=== PATIENT | male | born 1950 | race Caucasian/White ===

== ENCOUNTER 2022-11-20 13:29 | Inpatient (IN) ==
--- NOTE | 2022-11-20 14:07 | Electrocardiogram Report ---
Test Reason : Blood Pressure : / mmHG Vent. Rate : 109 BPM Atrial Rate : 109 BPM P-R Int : 172 ms QRS Dur : 074 ms QT Int : 306 ms P-R-T Axes : 082 052 085 degrees QTc Int : 412 ms Sinus tachycardia Possible Old Septal infarct Abnormal ECG No previous ECGs available Confirmed by Salvatore Theodore ([id number]) on 11/20/2022 2:07:25 PM Referred By: Confirmed By:Salvatore Theodore
--- NOTE | 2022-11-20 14:46 | XRay Report ---
XR chest 1V not portable CLINICAL HISTORY: Shortness of breath. COMPARISON STUDY: No previous studies for comparison. FINDINGS: Left subclavian Oewfib-s-Enti is in place. There is no pneumothorax. There is a moderate to large left pleural effusion. A small right pleural effusion is present. Note is made of a 5.2 cm mas slike opacity lateral to the right hilum. Cardiomegaly is noted. There is pulmonary vascular congesti on without overt pulmonary edema. IMPRESSION: 1. Moderate to large left pleural effusion. Small right pleural effusion. 2. 5.2 cm masslike opacity lateral to the right hilum. This is suspicious for a neoplastic process. C orrelation with prior imaging studies, if available, is recommended. In absence of prior studies, a c hest CT is suggested. ACT 112: Positive. There are findings on this exam that require communication between the performing entity and the patient following Patient Test Result Information Act ([place] Act 112) guidelines. Electronically signed by: Alexei Jaimes M.D. 11/20/2022 2:44 PM
[2022-11-20 14:47] LABS: Hematocrit (blood only) 33.3 % (42.0-52.0); Mean Corpuscular Hemoglobin 36.5 pg (25.0-34.0); Mean Corpuscular Volume 110.6 fL (80.0-100.0); Mean Platelet Volume 10.4 fL (9.4-12.4); Platelet Count 316 K/uL (130-400); RDW Coefficient of Variation 15.4 % (11.5-14.5); RDW Standard Deviation 62.3 fL (36.4-46.3); Red Blood Count 3.01 M/uL (4.70-6.10); White Blood Count 18.53 K/ul (4.8-10.8)
[2022-11-20 14:54] LABS: Alanine Aminotransferase 21 U/L (7-52); Albumin Globulin Ratio 1.3 (0.9-2); Alkaline Phosphatase 135 U/L (34-104); Anion Gap 8 (3-11); Aspartate Aminotransferase 22 U/L (13-39); BUN Creatinine Ratio 27.5 (10-20); Bilirubin,Total 0.5 mg/dl (0.2-1.0); Blood Urea Nitrogen 58 mg/dl (6-23); Calcium 9.7 mg/dl (8.6-10.3); Carbon Dioxide 31 mmol/L (21-32); Chloride 102 mmol/L (98-107); Est GFR (African American) 35.2 ml/min; Est GFR (Non-African American) 30.4 ml/min; Glucose 114 mg/dl (70-99(Fasting)); Potassium 4.7 mmol/L (3.5-5.1); Sodium 141 mmol/L (136-145)
[2022-11-20 15:55] LABS: Basophils # (auto) 0.02 K/uL (0-0.2); Basophils % (auto) 0.1 %; Immature Granulocytes # (auto) 0.14 K/uL (0.01-0.20); Immature Granulocytes % (auto) 0.8 %; Lymphocytes # (auto) 0.28 K/uL (1.2-3.4); Lymphocytes % (auto) 1.5 %; Macrocytosis Present; Monocytes # (auto) 0.32 K/uL (0.11-0.59); Monocytes % (auto) 1.7 %; Neutrophils # (auto) 17.77 K/uL (1.40-6.50); Neutrophils % (auto) 95.9 %
--- NOTE | 2022-11-20 17:26 | Emergency Department Note ---
Impression & Plan Pleural effusion, left, Metastatic non-small cell lung cancer, Infiltrate of lower lobe of left lung present on imaging study ED Provider Note CHIEF COMPLAINT: Shortness of breath, weakness HISTORY OF PRESENT ILLNESS: This 72-year-old male patient with past medical history of metastatic lung cancer, COPD, hypertension and chronic kidney disease presents to the emergency department with complaints of shortness of breath and weakness. Patient states he wears home oxygen but over the last several weeks has been lost approximately 10 pounds. Yesterday he was not able to get out of the chair and walk into the house. His daughter states he sat in the sun, not drinking any fluids for several hours. He denies any substernal chest pressure but does complain of "rib pain." He states he had a small bowel study and needed to drink contrast which he believes has not yet passed. He was told this could be causing his rib pain. He was sent in by his oncologist today, according to his daughter, to make sure his disease has not progressed. Patient states he has not been eating much recently but has not had any vomiting. He thinks he is dehydrated. REVIEW OF SYSTEMS: A review of systems was performed with positives and pertinent negatives listed in the history of present illness. 10 systems were reviewed and are otherwise negative. ALLERGIES: see below MEDICATIONS: see below PMH: see below SOCIAL HISTORY: see below DDx: Pleural effusion, pneumonia, pneumothorax, progressive lung cancer with lung collapse, PE, COPD exacerbation, ACS among others PHYSICAL EXAM: Vital signs reviewed. General: Chronically ill, thin and frail, 72-year-old male, wearing oxy mask. HEENT: No scleral icterus, PERRLA, neck supple. Dry mucous membranes. Cardiovascular: Regular rate and rhythm, slightly tachycardic, no extra sounds. Pulmonary: Diminished lung sounds on the left, mild wheezing on the right. Abdomen: Soft, nontender, nondistended, positive bowel sounds. Musculoskeletal: Atraumatic, no peripheral edema. Neurologic: Patient awake alert and oriented x 3, speech is clear Skin: Warm, dry, no rash EMERGENCY DEPARTMENT COURSE/MDM: This patient was evaluated and appeared to be in no significant distress. Patient was resting comfortably on oxy mask. External medical records were reviewed including [employer] oncology records. Patient was hydrated with normal saline solution. Chest x-ray was performed and reveals a large left pleural effusion which appears to be new when compared to previous imaging reads. Patient has a known mass in the right lower lung. CT imaging of the chest was performed and confirms the right lower lobe cavitary mass, inflammatory process in the right middle lobe and large left pleural effusion. There is also evidence of aspiration in the left main bronchus. Laboratory work reveals a leukocytosis of 18,000 with chronic renal failure, creatinine of 2.11. Blood cultures were sent and the patient was medicated with IV Zosyn. Patient's case was discussed with the hospitalist service who will evaluate the patient for admission and further management. MONITORING: An order for cardiac monitoring was placed and the patient is noted to be in a regular rate and rhythm at 93 beats per minute. RADIOLOGY: Chest x-ray to my interpretation reveals a large left pleural effusion, consolidation in the right perihilar appreciated. Otherwise defer to radiology CT scan of the chest: IMPRESSION: 1. Advanced emphysema. 2. There is a large left pleural effusion with atelectasis/consolidation of the left lower lung. Correlate clinically for evidence of pneumonia. 3. Pleural thickening is seen at the left lung base. A malignant effusion is not excluded. 4. There is a 4.6 cm cavitary mass lesion in the right lower lobe, likely corresponding to the reported history of a lung cancer. Correlate with the oncological history and any prior outside imaging studies. 5. There is an additional 1.5 cm nodule in the right lower lobe. This could be inflammatory or neoplastic. 6. There is a necrotic-appearing right axillary lymphadenopathy. Neoplasm is the diagnosis of exclusion. 7. Nodular consolidative change is seen in the right middle lobe. This is likely infectious/inflammatory. Correlate clinically. Attention at follow-up is recommended. 8. Secretions/debris fill the left mainstem bronchus in the lower lobe airways. Correlate clinically for evidence of aspiration. 9. Left-sided nephrolithiasis. 10. Additional findings as above. ACT 112: Negative or not required by law. Electronically signed by: Rasheed Santos M.D. 11/20/2022 7:04 PM EKG: To my interpretation reveals a sinus tachycardia at 109 bpm. Poor quality baseline for interpretation, QTc is 412. No PVC, no PAC. No previous EKGs available DISPOSITION: Admission Past Med/Surg History Medical History COPD (chronic obstructive pulmonary disease) HTN (hypertension) Hypertensive kidney disease with stage 3b chronic kidney disease Metastatic non-small cell lung cancer On home oxygen therapy Psoriasis Tobacco use disorder Surgical History History of dental surgery History of insertion of tunneled central venous catheter (CVC) with port S/P skin biopsy Family History Father Stroke Hypertension Social History Smoking Status: Current every day smoker Tobacco Type: Cigarettes packs per day: 0.75; Cigarettes Per Day: 4; Hx Alcohol Use: No Hx Substance Use: No Preferred Language: Hebrew Communication Ability: Effective Aging Box Hand Required: No Beliefs That Will Affect Care: None Current Living Situation: Family Current Living Situation Comment: lives w/ his mother Feels Safe at Home: Yes Assistive Devices: Oxygen - Continuous Allergies Allergies Allergy/AdvReac Type Severity Reaction Status Date / Time No Known Allergies Allergy Unverified 11/20/22 19:17 Home Meds Home Medications Medication Instructions Recorded Confirmed albuterol sulfate 90 mcg/actuation 2 puff inhalation QID PRN SOB 11/20/22 11/20/22 aerosol inhaler amlodipine 5 mg tablet 5 mg PO DAILY 11/20/22 11/20/22 dexamethasone 4 mg tablet 4 mg PO BID 11/20/22 11/20/22 folic acid 1 mg tablet 1 mg PO DAILY 11/20/22 11/20/22 tiotropium bromide 18 mcg capsule 18 mcg inhalation DAILY 11/20/22 11/20/22 with inhalation device (Spiriva with HandiHaler) Previous Rx's Medication Instructions Recorded amoxicillin 500 mg-potassium 1 tab PO BID 13 days #26 tabs 11/21/22 clavulanate 125 mg tablet (Augmentin) lactobacillus combination no.4 3 3,000 mmu cells PO DAILY 2 weeks 11/21/22 billion cell capsule (Probiotic) #14 caps mirtazapine 15 mg tablet 7.5 mg PO HS #20 tabs 11/21/22 Results & Data (ED) Vital Signs Vital Signs - 24 hr 11/20/22 13:32 11/20/22 16:30 11/20/22 16:45 Temperature 36.1 C L Temperature Source Temporal Artery Scan Pulse Rate 104 H Pulse Rate [Right Finger] 100 H Pulse Rate from SpO2 Sensor Pulse Rhythm [Right Finger] Regular Pulse Strength [Right Finger] Normal Respiratory Rate 20 18 Respiratory Effort / Characteristics Non-Labored Spontaneous Non-Labored Respiratory Depth Normal Normal Respiratory Pattern Regular Blood Pressure 103/67 Blood Pressure [Right Arm] 143/89 H Blood Pressure Mean 79 Blood Pressure Mean [Right Arm] 107 Blood Pressure Position [Right Arm] Lying Pulse Oximetry 94 93 84 L Oxygen Delivery Method Room Air Oxymask Oxymask Oxygen Flow Rate 5 0 Sepsis Recent Fever Within 48 Hours No Sepsis New/Unexplained Change in Mental Status N/A Sepsis Action Taken by Nursing No Action Required Oxygen Flow Rate - Titration 5 Pulse Oximetry Post Tiitration 100 11/20/22 16:51 11/20/22 17:00 11/20/22 17:00 Temperature Temperature Source Pulse Rate 98 H 95 H Pulse Rate [Right Finger] Pulse Rate from SpO2 Sensor 95 H Pulse Rhythm [Right Finger] Pulse Strength [Right Finger] Respiratory Rate 20 28 H Respiratory Effort / Characteristics Respiratory Depth Respiratory Pattern Blood Pressure 127/90 Blood Pressure [Right Arm] Blood Pressure Mean 105 Blood Pressure Mean [Right Arm] Blood Pressure Position [Right Arm] Pulse Oximetry 100 Oxygen Delivery Method Oxymask Oxymask Oxygen Flow Rate 5 5 Sepsis Recent Fever Within 48 Hours Sepsis New/Unexplained Change in Mental Status Sepsis Action Taken by Nursing Oxygen Flow Rate - Titration Pulse Oximetry Post Tiitration 11/20/22 17:30 11/20/22 16:51 Temperature Temperature Source Pulse Rate 93 H 98 H Pulse Rate [Right Finger] Pulse Rate from SpO2 Sensor 92 H Pulse Rhythm [Right Finger] Pulse Strength [Right Finger] Respiratory Rate 20 Respiratory Effort / Characteristics Respiratory Depth Respiratory Pattern Blood Pressure Blood Pressure [Right Arm] Blood Pressure Mean Blood Pressure Mean [Right Arm] Blood Pressure Position [Right Arm] Pulse Oximetry 100 Oxygen Delivery Method Oxymask Oxygen Flow Rate 5 Sepsis Recent Fever Within 48 Hours Sepsis New/Unexplained Change in Mental Status Sepsis Action Taken by Nursing Oxygen Flow Rate - Titration Pulse Oximetry Post Tiitration Home Medications Current Medication List: was personally reviewed by me Laboratory Data Attestation: I reviewed the patient's lab results. 11/20/22 13:48 11/20/22 13:48 Lab Results 11/20/22 11/20/2211/20/23 Range/Units 13:48 13:48 18:37 WBC 18.53 H (4.8-10.8) K/ul RBC 3.01 L (4.70-6.10) M/uL Hgb 11.0 L (14.0-18.0) g/dl Hct 33.3 L (42.0-52.0) % MCV 110.6 H (80.0-100.0) fL MCH 36.5 H (25.0-34.0) pg MCHC 33.0 (32.0-36.0) g/dL RDW Std Deviation 62.3 H (36.4-46.3) fL RDW Coeff of Subha 15.4 H (11.5-14.5) % Plt Count 316 (130-400) K/uL MPV 10.4 (9.4-12.4) fL Immature Gran % (Auto) 0.8 % Neut % (Auto) 95.9 % Lymph % (Auto) 1.5 % [place] % (Auto) 1.7 % Eos % (Auto) 0.0 % Baso % (Auto) 0.1 % Neut # (Auto) 17.77 H (1.40-6.50) K/uL Lymph # (Auto) 0.28 L (1.2-3.4) K/uL [place] # (Auto) 0.32 (0.11-0.59) K/uL Eos # (Auto) 0.00 (0-0.50) K/uL Baso # (Auto) 0.02 (0-0.2) K/uL Immature Gran # (Auto) 0.14 (0.01-0.20) K/uL Macrocytosis Present Sodium 141 (136-145) mmol/L Potassium 4.7 (3.5-5.1) mmol/L Chloride 102 (98-107) mmol/L Carbon Dioxide 31 (21-32) mmol/L Anion Gap 8 (3-11) BUN 58 H (6-23) mg/dl Creatinine 2.11 H (0.6-1.4) mg/dl Est Cr Clr Drug Dosing Not Reportable Est GFR ( Amer) 35.2 ml/min Est GFR (Non-Af Amer) 30.4 ml/min BUN/Creatinine Ratio 27.5 H (10-20) Glucose 114 H (70-99(Fasting)) mg/dl Calcium 9.7 (8.6-10.3) mg/dl Total Bilirubin 0.5 (0.2-1.0) mg/dl AST 22 (13-39) U/L ALT 21 (7-52) U/L Alkaline Phosphatase 135 H (34-104) U/L Total Protein 7.0 (6.0-8.3) gm/dl Albumin 4.0 (3.4-5.0) gm/dl Globulin 3.0 (2.5-4.0) gm/dl Albumin/Globulin Ratio 1.3 (0.9-2) Urine Color Yellow Urine Appearance Cloudy A (Clear) Urine pH 5.0 (4.5-7.5) Ur Specific [place] 1.020 (1.000-1.030) Urine Protein 1+ H (Negative) Urine Glucose (UA) Negative (Negative) Urine Ketones Trace H (Negative) Urine Blood 1+ H (Negative) Urine Nitrite Positive A (Negative) Urine Bilirubin Negative (Negative) Urine Urobilinogen Negative (Negative) Ur Leukocyte Esterase Negative (Negative) Urine WBC (Auto) 1-5 (0-5) /hpf Urine RBC (Auto) 0-4 (0-4) /hpf U Hyaline Cast (Auto) 5-10 H (0-5) /lpf U Epithel Cells (Auto) 10-20 H (0-5) /lpf Urine Bacteria (Auto) Negative (Negative) Administered Medications Discontinued Medications Albuterol (Albut/Ipratrop 3mg/0.5mg Neb 3 Ml Vial) 3 ml NEB QIDR [facility]; Protocol Stop: 12/21/22 06:59 Last Admin: 11/21/22 15:12 Dose: 3 ml Documented By: Admin: 11/21/22 10:55 Dose: 3 ml Documented By: Admin: 11/21/22 07:00 Dose: 3 ml Documented By: Admin: 11/20/22 22:22 Dose: 3 ml Documented By: RAY Amoxicillin/Clavulanate Potassium (Amoxicillin/Clavulanate 500 Mg Tab) [facility] Protocol Stop: 11/28/22 17:14 Last Admin: 11/21/22 17:42 Dose: 1 tab Documented By: CMF(2) Sodium Chloride (Nss) 500 mls @ 999 mls/hr IV .Q31M ONE Stop: 11/20/22 18:05 Last Infusion: 11/20/22 18:45 Dose: 0 mls/hr Documented By: Admin: 11/20/22 17:58 Dose: 999 mls/hr Documented By: RANDOLPH Sodium Chloride (Nss 1000ml) 1,000 mls @ 125 mls/hr IV .Q8H [facility] Stop: 12/20/22 17:44 Last Infusion: 11/21/22 05:58 Dose: 0 mls/hr Documented By: Admin: 11/20/22 17:58 Dose: 125 mls/hr Documented By: RANDOLPH Piperacillin Sod/Tazobactam Sod (Zosyn) 4.5 gm in 120 mls @ 240 mls/hr IV NOW ONE Stop: 11/20/22 18:44 Last Infusion: 11/20/22 21:05 Dose: 0 mls/hr Documented By: Admin: 11/20/22 18:46 Dose: 240 mls/hr Documented By: RANDOLPH Piperacillin Sod/Tazobactam (Sod 4.5 gm/ Dextrose) 120 mls @ 30 mls/hr IV Q8H [facility]; Protocol Stop: 11/27/22 01:59 Last Infusion: 11/21/22 13:48 Dose: 0 mls/hr Documented By: RAY(2) Admin: 11/21/22 09:23 Dose: 30 mls/hr Documented By: RAY(2) Infusion: 11/21/22 05:57 Dose: 0 mls/hr Documented By: Admin: 11/21/22 01:44 Dose: 30 mls/hr Documented By: DUGLAS Miscellaneous (Remove Nicoderm Patch) 1 each N/A DAILY@0859 [facility] Stop: 12/21/22 08:58 Last Admin: 11/21/22 08:24 Dose: Not Given Documented By: BRIIF(2) Imaging Data Radiologist's Impression: Chest X-Ray 11/20/22 13:39 XR chest 1V not portable CLINICAL HISTORY: Shortness of breath. COMPARISON STUDY: No previous studies for comparison. FINDINGS: Left subclavian Cyckqk-u-[id number] is in place. There is no pneumothorax. There is a moderate to large left pleural effusion. A small right pleural eff usion is present. Note is made of a 5.2 cm masslike opacity lateral to the right hilum. Cardiomegaly is noted. There is pulmonary vascular congestion without overt pulmonary edema. IMPRESSION: 1. Moderate to large left pleural effusion. Small right pleural effusion. 2. 5.2 cm masslike opacity lateral to the right hilum. This is suspicious for a neoplastic process. Correlation with prior imaging studies, if available, is recommended. In absence of prior studies, a chest CT is suggested. ACT 112: Positive. There are findings on this exam that require communication between the performing entity and the patient following Patient Test Result Information Act ([place] Act 112) guidelines. Electronically signed by: Alexei Jaimes M.D. 11/20/2022 2:[address] 11/20/22 17:34 CT SCAN OF THE CHEST WITHOUT IV CONTRAST CLINICAL HISTORY: Lung cancer. Pleural effusion. COMPARISON STUDY: Chest x-ray dated 11/20/2022. TECHNIQUE: CT scan of the thorax was performed from the thoracic inlet to the upper abdomen. Images are reviewed in the axial, sagittal, and coronal planes. IV contrast was not administered for this examination as per the referring clinician. Note that the examination was performed in significantly suboptimal fashion without IV contrast. A dose lowering technique was utilized adhering to the principles of ALARA. CT DOSE: 236.13 mGy.cm FINDINGS: Thyroid: Imaged portions of the thyroid gland are normal in size and attenuation. Thoracic aorta: There is atherosclerotic calcification of the thoracic aorta, which is normal in caliber and demonstrates standard 3-vessel arch anatomy. Heart: A left subclavian central venous infusion port is in place. The heart is normal in size noting a small pericardial effusion. The coronary arteries are densely calcified. There is diminished attenuation of the cardiac blood pool as compared to the myocardium suggesting anemia. Lungs and pleural spaces: Evaluation of the lung parenchyma is degraded by motion artifact. There is advanced emphysema. The trachea is clear. Secretions/debris filled the left mainstem bronchus. There is a large left pleural effusion with near complete atelectasis of the left lower lung. Pleural thickening is suggested at the left lung base. The left apex remains aerated. No pleural effusion is seen on the right. There is a 4.3 x 4.6 x 4.2 cm cavitary mass lesion in the right lower lobe seen on axial image #165. An additional focus of nodularity more superiorly in the right lower lobe on image #136 measures up to 1.5 cm. Mild patchy/nodular consolidation is seen in the middle lobe. Mediastinum: There is no mediastinal lymphadenopathy. Dora: Not well assessed without IV contrast. Axillae: There is necrotic-appearing right axillary lymphadenopathy. A node on image #61 measures 2.2 x 1.8 cm. No left axillary adenopathy is seen. Upper abdomen: A 4 mm nonobstructing calculus is seen in the upper pole of left kidney. No adrenal lesion is identified. Skeletal structures: The skeletal structures are osteopenic. No lytic or blastic bony lesions are seen. Degenerative change is seen throughout the thoracic spine. Arthritic change is noted in the shoulders. There is calcific tendinopathy on the right. IMPRESSION: 1. Advanced emphysema. 2. There is a large left pleural effusion with atelectasis/consolidation of the left lower lung. Correlate clinically for evidence of pneumonia. 3. Pleural thickening is seen at the left lung base. A malignant effusion is not excluded. 4. There is a 4.6 cm cavitary mass lesion in the right lower lobe, likely corresponding to the reported history of a lung cancer. Correlate with the oncological history and any prior outside imaging studies. 5. There is an additional 1.5 cm nodule in the right lower lobe. This could be inflammatory or neoplastic. 6. There is a necrotic-appearing right axillary lymphadenopathy. Neoplasm is the diagnosis of exclusion. 7. Nodular consolidative change is seen in the right middle lobe. This is likely infectious/inflammatory. Correlate clinically. Attention at follow-up is recommended. 8. Secretions/debris fill the left mainstem bronchus in the lower lobe airways. Correlate clinically for evidence of aspiration. 9. Left-sided nephrolithiasis. 10. Additional findings as above. ACT 112: Negative or not required by law. Electronically signed by: Rasheed Santos M.D. 11/20/2022 7:04 PM Discharge Plan Visit Data Chief Complaint: Illness Stated Complaint: LOST WEIGHT,LIGHTHEADED,CAN'T EAT,HAS CANCER ED Provider: Stacy Fairbanks Discharge Problem: Pleural effusion, left, Metastatic non-small cell lung cancer, Infiltrate of lower lobe of left lung present on imaging study Patient Disposition: Admitted As Inpatient Discharge Instructions Interventions: ED Discharge Assessment Last Done: 11/20/22 21:08
[2022-11-20] MEDS ORDERED: SODIUM CHLORIDE 0.9% 500 ML IV ONE (17:35)
[2022-11-20] MEDS ORDERED: SODIUM CHLORIDE 0.9% 1000ML 1,000 ML IV SCH (17:45)
[2022-11-20] MEDS ORDERED: PIPERACILLIN/TAZOBACTAM 4.5 GM/120 ML BAG IV ONE (18:15)
--- NOTE | 2022-11-20 19:05 | CT Scan Report ---
CT SCAN OF THE CHEST WITHOUT IV CONTRAST CLINICAL HISTORY: Lung cancer. Pleural effusion. COMPARISON STUDY: Chest x-ray dated 11/20/2022. TECHNIQUE: CT scan of the thorax was performed from the thoracic inlet to the upper abdomen. Images are reviewed in the axial, sagittal, and coronal planes. IV contrast was not administered for this ex amination as per the referring clinician. Note that the examination was performed in significantly sams boptimal fashion without IV contrast. A dose lowering technique was utilized adhering to the princip les of BELLE. CT DOSE: 236.13 mGy.cm FINDINGS: Thyroid: Imaged portions of the thyroid gland are normal in size and attenuation. Thoracic aorta: There is atherosclerotic calcification of the thoracic aorta, which is normal in hazel nere[place] and demonstrates standard 3-vessel arch anatomy. Heart: A left subclavian central venous infusion port is in place. The heart is normal in size noting a small pericardial effusion. The coronary arteries are densely calcified. There is diminished atten uation of the cardiac blood pool as compared to the myocardium suggesting anemia. Lungs and pleural spaces: Evaluation of the lung parenchyma is degraded by motion artifact. There is advanced emphysema. The trachea is clear. Secretions/debris filled the left mainstem bronchus. There is a large left pleural effusion with near complete atelectasis of the left lower lung. Pleural thick ening is suggested at the left lung base. The left apex remains aerated. No pleural effusion is seen on the right. There is a 4.3 x 4.6 x 4.2 cm cavitary mass lesion in the right lower lobe seen on axia l image #165. An additional focus of nodularity more superiorly in the right lower lobe on image #136 measures up to 1.5 cm. Mild patchy/nodular consolidation is seen in the middle lobe. Mediastinum: There is no mediastinal lymphadenopathy. Dora: Not well assessed without IV contrast. Axillae: There is necrotic-appearing right axillary lymphadenopathy. A node on image #61 measures 2.2 x 1.8 cm. No left axillary adenopathy is seen. Upper abdomen: A 4 mm nonobstructing calculus is seen in the upper pole of left kidney. No adrenal le roxanna is identified. Skeletal structures: The skeletal structures are osteopenic. No lytic or blastic bony lesions are see n. Degenerative change is seen throughout the thoracic spine. Arthritic change is noted in the should ers. There is calcific tendinopathy on the right. IMPRESSION: 1. Advanced emphysema. 2. There is a large left pleural effusion with atelectasis/consolidation of the left lower lung. Enmanuel elate clinically for evidence of pneumonia. 3. Pleural thickening is seen at the left lung base. A malignant effusion is not excluded. 4. There is a 4.6 cm cavitary mass lesion in the right lower lobe, likely corresponding to the report ed history of a lung cancer. Correlate with the oncological history and any prior outside imaging angelica dies. 5. There is an additional 1.5 cm nodule in the right lower lobe. This could be inflammatory or neopla stic. 6. There is a necrotic-appearing right axillary lymphadenopathy. Neoplasm is the diagnosis of exclusi on. 7. Nodular consolidative change is seen in the right middle lobe. This is likely infectious/inflammat ory. Correlate clinically. Attention at follow-up is recommended. 8. Secretions/debris fill the left mainstem bronchus in the lower lobe airways. Correlate clinically for evidence of aspiration. 9. Left-sided nephrolithiasis. 10. Additional findings as above. ACT 112: Negative or not required by law. Electronically signed by: Rasheed Santos M.D. 11/20/2022 7:04 PM
[2022-11-20 19:07] LABS: Appearance Urine Cloudy (Clear); Bacteria Urine Automated Negative (Negative); Bilirubin Urine Negative (Negative); Blood Urine 1+ (Negative); Color Urine Yellow; Glucose Urine UA Negative (Negative); Ketones Urine Trace (Negative); Leukocyte Esterase Urine Negative (Negative); Nitrite Urine Positive (Negative); Protein Urine 1+ (Negative); RBC Urine Automated 0-4 /hpf (0-4); Urobilinogen Urine Negative (Negative)
--- NOTE | 2022-11-20 19:10 | History & Physical Report ---
Date of Service November 20, 2022 Assessment & Plan (1) Acute respiratory failure: Plan: 2/2 pleural effusion with possible underlying aspiration pneumonia. Cont Zosyn, schedule nebulized bronchodilators. MRSA swab pending, if positive, will add vancomycin empirically. (2) Pleural effusion: Plan: Likely malignant etiology with known metastasized lung cancer. Pulmonary consulted for therapeutic thoracentesis. (3) Metastatic non-small cell lung cancer: Plan: Management per [facility], no evidence of confusion or seizure. (4) Tobacco use disorder: Plan: Down to 4 cigarettes/day, praised for efforts to cut back. Nicotine patch PRN (5) Psoriasis: Plan: Clobestasol topical PRN, currently has a small patch on his distal lower extremities. (6) Hypertensive kidney disease with stage 3b chronic kidney disease: Plan: chronic, stable. At his baseline. Avoid contrast or other nephrotoxic substances as able. (7) HTN (hypertension): Plan: chronic, stable. Cont current therapy. (8) COPD (chronic obstructive pulmonary disease): Plan: chronic, at baseline. No wheezing at this time, however, starting duonebs for comfort. Clinical appearance likely related to the pleural effusion DVT proph: SCDs, holding chemoprophylaxis in setting of upcoming procedure. Full code confirmed with him on admission. Daughter present for this conversation. Dispo-to telemetry and likely to home pending pulmonary recommendations. Desire Crespo DO [facility] Hospitalist History of Present Illness Chief Complaint: illness Primary Care Provider: Manuela Cortez MD The patient is a 72-year-old man with known non-small cell lung cancer with metastasis to the subcutaneous nodule/brain on a combination of pemetrexed and Keytruda started on 03/15/2021, presenting with worsening shortness of breath and weakness. The patient wears home oxygen but over the last several weeks has lost 10 pounds and yesterday was not able to get out of the chair secondary to significant weakness. He is reportedly not been eating much but has not had any vomiting. In the ER a chest CT reveals a large left pleural effusion and he is requiring 5 L/min via oxy mask. I reviewed the image at bedside with he and his daughter. He is very anxious and continues to say that he wants to go home and come back again in the morning for the thoracentesis. He is still not willing to stay when I left the room, but daughter was cleared by the nutritional yeast supervisor to visit early in the morning, and he is happy with having some nebulized breathing treatments this evening. He verbalized understanding that he could without the proper oxygen supp lementation at home if he doesn't stay and he understands that we are treating him for a possible aspiration pneumonia. Allergies Allergy/AdvReac Type Severity Reaction Status Date / Time No Known Allergies Allergy Unverified 11/20/22 19:17 Home Medications Medication Instructions Recorded Confirmed Type albuterol sulfate 90 mcg/actuation 2 puff inhalation QID PRN SOB 11/20/22 11/20/22 History aerosol inhaler amlodipine 5 mg tablet 5 mg PO DAILY 11/20/22 11/20/22 History dexamethasone 4 mg tablet 4 mg PO BID 11/20/22 11/20/22 History folic acid 1 mg tablet 1 mg PO DAILY 11/20/22 11/20/22 History tiotropium bromide 18 mcg capsule 18 mcg inhalation DAILY 11/20/22 11/20/22 History with inhalation device (Spiriva with HandiHaler) Past Med/Surg History Medical History COPD (chronic obstructive pulmonary disease) HTN (hypertension) Hypertensive kidney disease with stage 3b chronic kidney disease Metastatic non-small cell lung cancer On home oxygen therapy Psoriasis Tobacco use disorder Surgical History History of dental surgery History of insertion of tunneled central venous catheter (CVC) with port S/P skin biopsy Family History Father Stroke Hypertension Social History Smoking Status: Current every day smoker Tobacco Type: Cigarettes packs per day: 0.75; Hx Alcohol Use: No Hx Substance Use: No Preferred Language: Wolof Feels Safe at Home: Yes Review of Systems Review of Systems: All systems were reviewed and negative except as indicated on HPI above. Physical Exam Physical Exam: CONSTITUTIONAL: thin, frail, vitals as above, generally anxious-appearing, NAD EYES: pupils are round and equal bilaterally, normal conjunctivae, no scleral icterus ENT: external ear and nose normal, MMM NECK: trachea midline RESPIRATORY: diminished breath sounds throughout with scant coarse crackles at bases. Increased respiratory effort with movement/exertion. CARDIOVASCULAR: regular rate and rhythm, S1 and 2 heard without murmurs, gallops or rubs, no JVD, no peripheral edema CHEST: inspection of chest was normal GASTROINTESTINAL: soft, nontender, ND, no guarding MUSCULOSKELETAL: strength 5/5 throughout, head is normocephalic and atraumatic SKIN: warm and dry NEUROLOGIC: CN 2-12 grossly intact, no sensory deficit, normal cognition, normal speech, no tremor PSYCHIATRIC: alert cooperative and oriented to person, place and time. Euthymic mood, makes good eye contact, language grossly intact, recent and remote memory grossly intact. Results & Data Results & Data Vital Signs (Past 12 Hours) Vital Signs Temp Pulse Pulse Resp BP BP Pulse Ox 11/20/22 16:51 98 H 11/20/22 17:30 93 H 20 100 11/20/22 17:00 95 H 28 H 100 11/20/22 17:00 127/90 11/20/22 16:51 98 H 20 11/20/22 16:45 84 L 11/20/22 16:30 100 H 18 143/89 H 93 11/20/22 13:32 36.1 C L 104 H 20 103/67 94 O2 Del Method O2 Flow Rate 11/20/22 16:51 11/20/22 17:30 Oxymask 5 11/20/22 17:00 11/20/22 17:00 Oxymask 5 11/20/22 16:51 Oxymask 5 11/20/22 16:45 Oxymask 0 11/20/22 16:30 Oxymask 5 11/20/22 13:32 Room Air Laboratory Results Short CBC 11/20/22 Range/Units 13:48 WBC 18.53 H (4.8-10.8) K/ul Hgb 11.0 L (14.0-18.0) g/dl Hct 33.3 L (42.0-52.0) % Plt Count 316 (130-400) K/uL BMP 11/20/22 13:48 Sodium 141 Potassium 4.7 Chloride 102 Carbon Dioxide 31 BUN 58 H Creatinine 2.11 H Glucose 114 H Calcium 9.7 Liver Function 11/20/22 Range/Units 13:48 Total Bilirubin 0.5 (0.2-1.0) mg/dl AST 22 (13-39) U/L ALT 21 (7-52) U/L Alkaline Phosphatase 135 H (34-104) U/L Albumin 4.0 (3.4-5.0) gm/dl Urine 11/20/22 Range/Units 18:37 Urine Color Yellow Urine Appearance Cloudy A (Clear) Urine pH 5.0 (4.5-7.5) Ur Specific [place] 1.020 (1.000-1.030) Urine Protein 1+ H (Negative) Urine Glucose (UA) Negative (Negative) Diagnostic Findings Chest X-Ray 11/20/22 13:39 XR chest 1V not portable CLINICAL HISTORY: Shortness of breath. COMPARISON STUDY: No previous studies for comparison. FINDINGS: Left subclavian [id number]-t-[id number] is in place. There is no pneumothorax. There is a moderate to large left pleural effusion. A small right pleural effusion is present. Note is made of a 5.2 cm masslike opacity lateral to the right hilum. Cardiomegaly is noted. There is pulmonary vascular congestion without overt pulmonary edema. IMPRESSION: 1. Moderate to large left pleural effusion. Small right pleural effusion. 2. 5.2 cm masslike opacity lateral to the right hilum. This is suspicious for a neoplastic process. Correlation with prior imaging studies, if available, is recommended. In absence of prior studies, a chest CT is suggested. ACT 112: Positive. There are findings on this exam that require communication between the performing entity and the patient following Patient Test Result Information Act ([place] Act 112) guidelines. Electronically signed by: Alexei Jaimes M.D. 11/20/2022 2:[address] 11/20/22 17:34 CT SCAN OF THE CHEST WITHOUT IV CONTRAST CLINICAL HISTORY: Lung cancer. Pleural effusion. COMPARISON STUDY: Chest x-ray dated 11/20/2022. TECHNIQUE: CT scan of the thorax was performed from the thoracic inlet to the upper abdomen. Images are reviewed in the axial, sagittal, and coronal planes. IV contrast was not administered for this examination as per the referring clinician. Note that the examination was performed in significantly suboptimal fashion without IV contrast. A dose lowering technique was utilized adhering to the principles of ALARA. CT DOSE: 236.13 mGy.cm FINDINGS: Thyroid: Imaged portions of the thyroid gland are normal in size and attenuation. Thoracic aorta: There is atherosclerotic calcification of the thoracic aorta, which is normal in caliber and demonstrates standard 3-vessel arch anatomy. Heart: A left subclavian central venous infusion port is in place. The heart is normal in size noting a small pericardial effusion. The coronary arteries are densely calcified. There is diminished attenuation of the cardiac blood pool as compared to the myocardium suggesting anemia. Lungs and pleural spaces: Evaluation of the lung parenchyma is degraded by motion artifact. There is advanced emphysema. The trachea is clear. Secretions/debris filled the left mainstem bronchus. There is a large left pleural effusion with near complete atelectasis of the left lower lung. Pleural thickening is suggested at the left lung base. The left apex remains aerated. No pleural effusion is seen on the right. There is a 4.3 x 4.6 x 4.2 cm cavitary mass lesion in the right lower lobe seen on axial image #165. An additional focus of nodularity more superiorly in the right lower lobe on image #136 measures up to 1.5 cm. Mild patchy/nodular consolidation is seen in the middle lobe. Mediastinum: There is no mediastinal lymphadenopathy. Dora: Not well assessed without IV contrast. Axillae: There is necrotic-appearing right axillary lymphadenopathy. A node on image #61 measures 2.2 x 1.8 cm. No left axillary adenopathy is seen. Upper abdomen: A 4 mm nonobstructing calculus is seen in the upper pole of left kidney. No adrenal lesion is identified. Skeletal structures: The skeletal structures are osteopenic. No lytic or blastic bony lesions are seen. Degenerative change is seen throughout the thoracic spine. Arthritic change is noted in the shoulders. There is calcific tendinopathy on the right. IMPRESSION: 1. Advanced emphysema. 2. There is a large left pleural effusion with atelectasis/consolidation of the left lower lung. Correlate clinically for evidence of pneumonia. 3. Pleural thickening is seen at the left lung base. A malignant effusion is not excluded. 4. There is a 4.6 cm cavitary mass lesion in the right lower lobe, likely corresponding to the reported history of a lung cancer. Correlate with the oncological history and any prior outside imaging studies. 5. There is an additional 1.5 cm nodule in the right lower lobe. This could be inflammatory or neoplastic. 6. There is a necrotic-appearing right axillary lymphadenopathy. Neoplasm is the diagnosis of exclusion. 7. Nodular consolidative change is seen in the right middle lobe. This is likely infectious/inflammatory. Correlate clinically. Attention at follow-up is recommended. 8. Secretions/debris fill the left mainstem bronchus in the lower lobe airways. Correlate clinically for evidence of aspiration. 9. Left-sided nephrolithiasis. 10. Additional findings as above. ACT 112: Negative or not required by law. Electronically signed by: Rasheed Santos M.D. 11/20/2022 7:04 PM Code Status & VTE Plan VTE Prophylaxis Plan VTE Prophylaxis will be ordered: Yes
[2022-11-20] MEDS ORDERED: LORazepam 2 MG/1 ML VIAL IV PRN (20:30)
[2022-11-20] MEDS ORDERED: NICOTINE 21 MG/24 HR TDSY TD PRN (20:30)
[2022-11-20] MEDS ORDERED: POLYETHYLENE (MIRALAX) 17 GM PACK PO PRN (21:33)
[2022-11-20] MEDS ORDERED: ACETAMINOPHEN 325 MG TAB PO PRN (21:33)
[2022-11-20] MEDS: ALBUT/IPRATROP 3MG/0.5MG NEB 3 ML VIAL NEB SCH (22:22)
[2022-11-21] MEDS: PIPERACILLIN/TAZOBACTAM 4.5 GM in DEXTROSE 5% 100 ML IV SCH ×2 (01:44→09:23)
[2022-11-21] MEDS: ALBUT/IPRATROP 3MG/0.5MG NEB 3 ML VIAL NEB SCH ×3 (07:00→15:12)
--- NOTE | 2022-11-21 07:03 | Pulmonary Consultation ---
Date of Consultation November 21, 2022 Assessment & Plan (1) Pleural effusion, left: (2) Acute respiratory failure with hypoxia: (3) Tobacco use disorder: (4) COPD (chronic obstructive pulmonary disease): (5) Metastatic non-small cell lung cancer: Plan CT chest 11/20/2022 personally reviewed: Large left-sided pleural effusion with compressive atelectasis of the left lower lobe Centrilobular emphysema appreciated bilaterally, right lower lobe pulmonary mass 4.3 x 4.6 x 4.2 cm Treatment opacities in the right middle lobe No significant mediastinal lymphadenopathy --Acute on chronic hypoxic respiratory failure Likely secondary to large left-sided pleural effusion with compression atelectasis of the left lower lobe Probability of it being from malignancy is high Other possibilities include parapneumonic or secondary to immunotherapy Plan will be for thoracentesis today COVID-19 NAAT negative Nasal MRSA negative -- Abnormal chest CT Patient has right lower lobe 4.6 cm mass with tree-in-bud opacities in the right middle lobe Does not seem to have significant mediastinal lymphadenopathy --COPD with emphysema On Spiriva at home Commend to be changed to Stiolto on discharge --Chronic hypoxic respiratory failure On 2-3 L oxygen at home -- Metastatic non-small cell lung cancer Mets to the brain -- DNR/DNI Plan: For thoracentesis later today Okay to continue with antibiotics for the time being. Follow-up culture, cytology as well as pH of the fluid Recommend to change Spiriva to Stiolto on discharge Case was discussed with Dr. Restrepo Please note the above document was generated using voice recognition software. It may contain grammatical, syntax or spelling errors.Any formal questions or concerns about the content, text or information contained within the body of this dictation should be directly addressed to the provider for clarification. History of Present Illness Attending Physician: Desire Crespo DO History of Present Illness 72-year-old male presented to the hospital with complaints of shortness of breath and weakness Past medical history: Non-small cell lung cancer diagnosed 2020 with mets to the brain on Keytruda and pemetrexed, psoriasis, hypertension, COPD Pulmonary consulted for left-sided pleural effusion At the time of examination patient's daughter was in the room. Patient says that he has been having shortness of breath which has been going on for a while. Progressively getting worse He was saturating 97-98% on 3 L OxyMask. Denied any chest pain. Occasional cough with clear phlegm. Denies any hemoptysis. No diarrhea, no dysuria. No subjective fever or chills prior to coming to the hospital. No headache or blurry vision Social history: Greater than 65-[id number] smoking history, currently smoking a pack a day, social alcohol. Denies any illicit drug use Allergies Allergy/AdvReac Type Severity Reaction Status Date / Time No Known Allergies Allergy Unverified 11/20/22 19:17 Home Medications Medication Instructions Recorded Confirmed Type albuterol sulfate 90 mcg/actuation 2 puff inhalation QID PRN SOB 11/20/22 11/20/22 History aerosol inhaler amlodipine 5 mg tablet 5 mg PO DAILY 11/20/22 11/20/22 History dexamethasone 4 mg tablet 4 mg PO BID 11/20/22 11/20/22 History folic acid 1 mg tablet 1 mg PO DAILY 11/20/22 11/20/22 History tiotropium bromide 18 mcg capsule 18 mcg inhalation DAILY 11/20/22 11/20/22 History with inhalation device (Spiriva with HandiHaler) Patient History Medical History COPD (chronic obstructive pulmonary disease) HTN (hypertension) Hypertensive kidney disease with stage 3b chronic kidney disease Metastatic non-small cell lung cancer On home oxygen therapy Psoriasis Tobacco use disorder Surgical History History of dental surgery History of insertion of tunneled central venous catheter (CVC) with port S/P skin biopsy Family History Father Stroke Hypertension Social History Smoking Status: Current every day smoker Tobacco Type: Cigarettes packs per day: 0.75; Cigarettes Per Day: 4; Tobacco Cessation Education Requested by Patient: No Hx Alcohol Use: No Hx Substance Use: No Preferred Language: Portuguese Communication Ability: Effective Residential Property Tax Appraiser Required: No Beliefs That Will Affect Care: None Current Living Situation: Family Current Living Situation Comment: lives w/ his mother Feels Safe at Home: Yes Safety Concerns: Feels Safe At This Time Assistive Devices: Oxygen - Continuous Review of Systems Review of Systems: All systems reviewed & are unremarkable except as noted in HPI & below Physical Exam Physical Exam: Constitutional: No acute distress HEENT: EOMI, PERRLA Respiratory system: Decreased air entry on the left side, no wheeze, no rhonchi, positive crackles bilateral lower lobe CVS: S1-S2 positive, no murmurs or gallops Abdomen: Soft, nontender, nondistended, positive bowel sounds x4 Extremities: +2 pulses bilaterally radialis/ dorsalis pedis, no cyanosis, no edema Neuro: Awake alert oriented x3 Psych: Normal mood and affect G/U: No Bass Skin: no rashes, warm and dry Lymphatic: no cervical or axillary lymphadenopathy Results & Data Results & Data Vital Signs (Past 12 Hours) Vital Signs Temp Pulse Resp BP Pulse Ox O2 Del Method O2 Flow Rate 11/21/22 07:01 88 18 100 Oxymask 4 11/21/22 03:37 36.8 C 88 18 128/81 100 Oxymask 4 11/20/22 23:27 36.6 C 91 H 20 115/71 98 Oxymask 3 11/20/22 22:22 86 18 95 Nasal Cannula 3 11/20/22 21:50 36.6 C 100 H 22 102/65 98 Oxymask 3 11/20/22 21:41 Oxymask 4 11/20/22 20:35 87 16 149/100 H 100 Oxymask Laboratory Results 11/20/22 13:48 11/20/22 13:48 PG Care Time/CCT Total # of Minutes Spent Total Time Spent with Patient: Total time spent is greater than 50% in coordination of care (as documented) at patient's floor/unit and/or counseling patient: Coding Level of Care Code 86389 INT INP/OBS CARE 3/75MIN Diagnoses Pleural effusion, left J90 Acute respiratory failure with hypoxia J96.01 Tobacco use disorder F17.200 COPD (chronic obstructive pulmonary disease) J44.9 Metastatic non-small cell lung cancer C34.90
[2022-11-21 07:33] LABS: Basophils # (auto) 0.02 K/uL (0-0.2); Basophils % (auto) 0.1 %; Eosinophils # (auto) 0.01 K/uL (0-0.50); Eosinophils % (auto) 0.1 %; Hematocrit (blood only) 28.5 % (42.0-52.0); Hemoglobin 9.3 g/dl (14.0-18.0); Immature Granulocytes # (auto) 0.15 K/uL (0.01-0.20); Immature Granulocytes % (auto) 0.9 %; Lymphocytes # (auto) 0.63 K/uL (1.2-3.4); Lymphocytes % (auto) 3.7 %; Mean Corpuscular Hemoglobin 36.8 pg (25.0-34.0); Mean Corpuscular Hgb Conc 32.6 g/dL (32.0-36.0); Mean Corpuscular Volume 112.6 fL (80.0-100.0); Mean Platelet Volume 10.3 fL (9.4-12.4); Monocytes # (auto) 1.02 K/uL (0.11-0.59); Monocytes % (auto) 5.9 %; Neutrophils # (auto) 15.33 K/uL (1.40-6.50); Neutrophils % (auto) 89.3 %; Platelet Count 227 K/uL (130-400); RDW Coefficient of Variation 15.5 % (11.5-14.5); RDW Standard Deviation 63.9 fL (36.4-46.3); Red Blood Count 2.53 M/uL (4.70-6.10); White Blood Count 17.16 K/ul (4.8-10.8)
[2022-11-21 07:48] LABS: Magnesium 2.6 mg/dl (1.7-2.4)
[2022-11-21 07:54] LABS: Phosphorus 4.9 mg/dl (2.5-4.9)
--- NOTE | 2022-11-21 13:59 | Procedure Note ---
Procedure Note Date of Service November 21, 2022 Note Procedure: Diagnostic therapeutic ultrasound-guided catheter thoracentesis Yarn Skeins Examiner: Dr. Saurav Sifuentes Indication: Left-sided pleural effusion Consent: Signed by patient and verified with timeout prior to procedure Anesthesia: 1% lidocaine without epinephrine local. Procedure: Consent was verified and timeout performed. Appropriate imaging studies were reviewed prior to the procedure. Patient was placed in a seated position and limited thoracic ultrasound was performed of the left chest. See separate imaging. Appropriate site above the diaphragm for thoracentesis was selected. The skin was prepped and draped in normal sterile fashion. Lidocaine was used for local analgesia. Fluid was aspirated via the finder needle. A small skin narcisa was made with the scalpel and the catheter over the needle apparatus was advanced over the rib into the pleural space. Using the syringe one-way valve system, a total of 2450 mL's of cloudy serosanguineous fluid was removed. Procedure was terminated due to discomfort The catheter was removed and observed to be intact. A sterile dressing was applied. Post procedure chest x-ray was ordered. Fluid was sent for labs, culture and cytology. Complications: None Blood loss: None Coding CPT Codes Pulmonary/Thoracic - Pulmonary and Thoracic: 26071 Thoracentesis w imaging ([id number][place] [facility] [place]arg[place]) Pulmonary/Thoracic Procedure 1: Pulmonary and Thoracic: 00836 Thoracentesis w imaging
--- NOTE | 2022-11-21 14:41 | XRay Report ---
XR chest 1V portable CLINICAL HISTORY: POST THORA TECHNIQUE: Single frontal radiograph of the chest was obtained. Comparison: Comparison is made to chest radiograph 11/20/2022 FINDINGS: A port catheter is seen. The cardiomediastinal silhouette is normal. Right mid lung airspace opacity is seen. Left lower lung consolidation has improved from prior exam. Small left pleural effusion is s een, decreased from prior exam. No pneumothorax. IMPRESSION: 1. Interval decrease in size of left pleural effusion status post thoracentesis. No pneumothorax. 2. Redemonstration of right lung mass. ACT 112: Negative or not required by law. Electronically signed by: Shawn Mason M.D. 11/21/2022 2:39 PM
[2022-11-21 14:42] LABS: Albumin Level 3.4 gm/dl (3.4-5.0); Bilirubin,Total 0.5 mg/dl (0.2-1.0)
[2022-11-21 14:48] LABS: Total Protein 5.9 gm/dl (6.0-8.3)
[2022-11-21 16:20] LABS: Total Protein Pleural Fluid 3.6 gm/dl
[2022-11-21 17:04] LABS: Appearance Pleural Fluid Cloudy; Color Pleural Fluid Amber; Mono,Macrophage,Mesothelial 100 %; Neutrophils, Fluid 0 %; RBC Pleural Fluid Auto 13000 /uL; Source Pleural Fluid Left Lung; WBC Pleural Fluid Auto 852 /uL
--- NOTE | 2022-11-21 17:07 | Discharge Summary ---
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 The patient wears home oxygen but over the last several weeks has lost 10 pounds and yesterday was not able to get out of the chair secondary to significant weakness. He is reportedly not been eating much but has not had any vomiting. In the ER a chest CT reveals a large left pleural effusion and he is requiring 5 L/min via oxy mask. I reviewed the image at bedside with he and his daughter. He is very anxious and continues to say that he wants to go home and come back again in the morning for the thoracentesis. He is still not willing to stay when I left the room, but daughter was cleared by the diet supervisor to visit early in the morning, and he is happy with having some nebulized breathing treatments this evening. He verbalized understanding that he could without the proper oxygen supplementation at home if he doesn't stay and he understands that we are treating him for a possible aspiration pneumonia. Admission Exam Per Admitting Provider CONSTITUTIONAL: thin, frail, vitals as above, generally anxious-appearing, NAD EYES: pupils are round and equal bilaterally, normal conjunctivae, no scleral icterus ENT: external ear and nose normal, MMM NECK: trachea midline RESPIRATORY: diminished breath sounds throughout with scant coarse crackles at bases. Increased respiratory effort with movement/exertion. CARDIOVASCULAR: regular rate and rhythm, S1 and 2 heard without murmurs, gallops or rubs, no JVD, no peripheral edema CHEST: inspection of chest was normal GASTROINTESTINAL: soft, nontender, ND, no guarding MUSCULOSKELETAL: strength 5/5 throughout, head is normocephalic and atraumatic SKIN: warm and dry NEUROLOGIC: CN 2-12 grossly intact, no sensory deficit, normal cognition, normal speech, no tremor PSYCHIATRIC: alert cooperative and oriented to person, place and time. Euthymic mood, makes good eye contact, language grossly intact, recent and remote memory grossly intact. Principal Diagnosis Acute respiratory failure Large left pleural effusion, likely malignant Metastatic non-small cell lung cancer Discharge Exam GENERAL: Alert and oriented x3. NAD, on 2L via OM. frail appearing individual. HEENT: No pallor, no icterus. Pupils equal, round and reactive to light. Oral mucosa moist. NECK: No JVD, no neck masses. HEART: S1 and S2 heard. Regular rate and rhythm. No murmur, no gallop. RESPIRATORY SYSTEM: Normal AP diameter. No accessory muscle use. No wheezing, b/b crackles. diminished BS x lt ABDOMEN: Soft, bowel sounds present, nontender, no distention. CENTRAL NERVOUS SYSTEM: No facial droop. Speech is clear. Obeys simple commands. Moves extremities. EXTREMITIES: No edema, no erythema seen. Discharge Data Allergies Allergy/AdvReac Type Severity Reaction Status Date / Time No Known Allergies Allergy Unverified 11/20/22 19:17 Consultations 11/20/22 18:49 ED Decision to Admit Stat 11/20/22 21:33 Consult Pulmonology Routine Ordered Studies 11/20/22 17:34 CT chest diagnostic wo con Stat 11/21/22 07:01 US point of care ultrasound Urgent Hospital Course (1) Acute respiratory failure: 2/2 pleural effusion with possible underlying aspiration pneumonia. Cont Zosyn --> to augmentin on DC. MRSA neg. Improved after thoracentesis, back to baseline O2 requirement. He would like to go home today. (2) Pleural effusion: Likely malignant etiology with known metastasized lung cancer. Pulmonary - s/p therapeutic thoracentesis. Pt to f/u with pl studies/culture as OP, to coordinate w/ pcp office. (3) Metastatic non-small cell lung cancer: Management per [facility], no evidence of confusion or seizure. (4) Tobacco use disorder: Down to 4 cigarettes/day, praised for efforts to cut back. Nicotine patch PRN (5) Psoriasis: Clobestasol topical PRN, currently has a small patch on his distal lower extremities. (6) Hypertensive kidney disease with stage 3b chronic kidney disease: chronic, stable. At his baseline. Avoid contrast or other nephrotoxic substances as able. (7) HTN (hypertension): chronic, stable. Cont current therapy. (8) COPD (chronic obstructive pulmonary disease): chronic, at baseline. No wheezing at this time, however, starting duonebs for comfort. Clinical appearance likely related to the pleural effusion DVT proph: SCDs DNR/DNI per my discussion with the patient and her dtr at bedside on 11/21/22 Following instructions were communicated to patient's daughter Daniela over the phone: Follow-up with your primary care physician within a week, likely will need labs CBC/CMP/magnesium/phosphorus. Recommend establishing with palliative care as an outpatient if not done prior. Follow-up with your cancer doctor as an outpatient as prior. You will need to follow-up on the studies and culture of the pleural fluid tappe d out today, coordinate with your PCP office at your next visit within a week time. You will be discharged on antibiotic for total of 14 days. Complete the course. Take your medications as prescribed. Home Health Attestation I certify that this patient is under my care and that I, or a physicians research program assistant working with me, had a face to-face encounter that meets the home health [id number] encounter requirements with this patient. The encounter with the patient was in whole, or in part, for the following medical condition, which is the primary reason for home health care (list medical condition): I certify that, based on my findings, the following services are medically necessary home health services: My clinical findings support the need for the above services because: Further, I certify that my clinical findings support that this patient is homebo und (i.e. absences from home require considerable and taxing effort and are for medical reasons or anabaptist services or infrequently or of short duration when for other reasons) because: Certification for Home Health Services: Based on the above findings, I certify that this patient is confined to the home and needs intermittent halfway care, physical therapy and/or speech therapy or continues to need occupational therapy. The patient is under my care, and I have initiated the establishment of the plan of care. This patient will be followed by a physician who will periodically review the plan of care. Total Time Total Time Spent Total Time Spent (In Minutes): 55 Discharge Plan Discharge Items Patient Disposition: Home - Self-Care Reason For Visit: ACUTE RESPIRATORY FAILURE Discharge Diagnosis: Acute respiratory failure Large left pleural effusion, likely malignant Metastatic non-small cell lung cancer Activity: Resume your previous activity Non-emergency contact: Primary Care Provider Call non-emergency contact if: you have any medication questions, your symptoms worsen and your temperature is above 101 Follow-up/Referrals: Manuela Cortez MD [Primary Care Provider] - (Date & Time 11/27/2022 2:00 PM Provider Manuela Cortez MD Department [facility] ) Diet: Regular Addtl Attending Provider Instructions: Follow-up with your primary care physician within a week, likely will need labs CBC/CMP/magnesium/phosphorus. Recommend establishing with palliative care as an outpatient if not done prior. Follow-up with your cancer doctor as an outpatient as prior. You will need to follow-up on the studies and culture of the pleural fluid tapped out today, coordinate with your PCP office at your next visit within a week time. You will be discharged on antibiotic for total of 14 days. Complete the course. Take your medications as prescribed. Pending Studies at Discharge: Yes Stand-Alone Forms: My [facility], Smoking Cessation Medications and DC Order Prescriptions: New mirtazapine 15 mg Tablet 7.5 mg PO HS Qty: 20 0RF amoxicillin-pot clavulanate [Augmentin] 500-125 mg tablet 1 tab PO BID 13 Days Qty: 26 0RF Probiotic 3 billion cell capsule 3,000 mmu cells PO DAILY 14 Days Qty: 14 0RF Rx Instructions: administer with a meal Continued amlodipine 5 mg tablet 5 mg PO DAILY dexamethasone 4 mg tablet 4 mg PO BID folic acid 1 mg tablet 1 mg PO DAILY albuterol sulfate 90 mcg/actuation HFA aerosol inhaler 2 puff INHALATION QID PRN (Reason: SOB) Spiriva with HandiHaler 18 mcg capsule, w/inhalation device 18 mcg INHALATION DAILY Discharge Orders: Discharge Order (Routine); Ordered 11/21/22 Ordered By: Jose Guadalupe Restrepo Admission Data Admit Date/Time: 11/20/22 19:03 Attending Provider: Jose Guadalupe Restrepo Admit Provider: Desire Crespo Primary Care Provider: Manuela Cortez Other Providers: Desire Crespo ; Saurav Sifuentes
[2022-11-21] MEDS ORDERED: AMOXICILLIN/CLAVULANATE 500 MG TAB PO SCH (17:15)
[2022-11-21] MEDS ORDERED: MIRTAZAPINE TAB 15 MG TAB PO SCH (21:00)
[2022-11-22 07:27] LABS: A calco-baum cmplx NotReported Not Detected (NotDetected); Bact fragilis Not Reported Not Detected (NotDetected); C auris Not Reported Not Detected (NotDetected); Calbicans Not Reported Not Detected (NotDetected); Candida glabrata Not Reported Not Detected (NotDetected); Candida krusei Not Reported Not Detected (NotDetected); Cneoformans/gatti Not Reported Not Detected (NotDetected); Cparapsilosis Not Reported Not Detected (NotDetected); Ctropicalis Not Reported Not Detected (NotDetected); E cloacae compx Not Reported Not Detected (NotDetected); Efaecalis Not Reported Not Detected (NotDetected); Efaecium Not Reported Not Detected (NotDetected); Enterobacterales Not Reported Not Detected (NotDetected); Escherichia coli Not Reported Not Detected (NotDetected); H influenzae Not Reported Not Detected (NotDetected); K aerogenes Not Reported Not Detected (NotDetected); Koxytoca Not Reported Not Detected (NotDetected); Kpneumoniae grp Not Reported Not Detected (NotDetected); Lmonocyt Not Reported Not Detected (NotDetected); N meningitidis Not Reported Not Detected (NotDetected); P aeruginosa Not Reported Not Detected (NotDetected); Proteus spp Not Reported Not Detected (NotDetected); Salmonella spp Not Reported Not Detected (NotDetected); Smarcescens Not Reported Not Detected (NotDetected); Staph lugdunensis Not Reported Not Detected (NotDetected); Staph spp. Not Reported Not Detected (NotDetected); Staphaureus Not Reported Not Detected (NotDetected); Staphepi Not Reported Not Detected (NotDetected); Stenmaltophilia Not Reported Not Detected (NotDetected); Strep agal(GrpB) Not Reported Not Detected (NotDetected); Strep pneum Not Reported Not Detected (NotDetected); Strep pyog (GrpA) Not Reported Not Detected (NotDetected); Strep spp Not Reported DETECTED (NotDetected)
[2022-11-22 07:35] LABS: Streptococcus spp DETECTED (NotDetected)
== END 2022-11-21 18:10 | disposition home or self-care (01) | DRG 180 ==
LOC: ED 13:29 → 2S 19:03 → SUATTDRO 19:03